=== PATIENT | male | born 1995 | race Caucasian/White ===

== ENCOUNTER 2017-08-03 01:15 | Emergency (ER) | payer MEDICAID ==
[~2017-08-03] VITALS: Ht 182.9 cm; Wt 76.2 kg
[2017-08-03 01:24] VITALS: BP 122/80; Ht 182.9 cm; Wt 76.2 kg
== END 2017-08-03 02:52 | disposition home or self-care (01) ==
LOC: ED 01:15
DX: J02.9 Acute pharyngitis, unspecified (principal); R05 Cough; M79.1 Myalgia